=== PATIENT | female | born 1965 | race Caucasian/White ===

== ENCOUNTER 2017-03-30 17:51 | Emergency (ER) | payer OTHER ==
--- NOTE | ~2017-03-30 | CR2 ---
[facility] A Service of [facility] & [facility] RADIOLOGY TEXT RESULTS PATIENT: RAY COREA LOCATION: [facility] : 65 UNIT #: [id number] AGE: [address]: Kiet Klein MD SEX: F ORDER DR: [id number] [facility] [address] [place], [place] [address] [id number] E MR#: [id number] Acc #: [id number] NAME: RAY COREA : 1965 SEX: F STUDY DATE/TIME: 03/30/2017 19:25 UNIT: [facility] ROOM: STUDY DESCRIPTION: CR Abdomen Acute Series Attending Physician: Kiet Klein M.D. Ordering Physician: Kiet Klein M.D. Primary Care Physician: Sheldon Diego M.D. MEDICAL IMAGING REPORT This report is preliminary unless electronic signature is present EXAM Acute abdomen series HISTORY Nausea and vomiting for the past 2 days. TECHNIQUE A single view of the chest was obtained as well as flat and upright views of the abdomen. FINDINGS The lungs are clear. In the abdomen, the bowel gas pattern is normal. Clips are seen from cholecystectomy and tubal ligation. No suspicious masses or calcifications are seen. IMPRESSION Normal bowel gas pattern. Dictated by... Real Whitney M.D. THIS IS AN ELECTRONICALLY VERIFIED REPORT Real Whitney M.D. at 03/30/2017 10:18 PM RLF/pcl TD: 03/30/2017 20:54 JOB #: [id number] MEDICAL IMAGING REPORT Page 1 of 1 COPY
--- NOTE | ~2017-03-30 | CR151 ---
[facility] A Service of [facility] & [facility] RADIOLOGY TEXT RESULTS PATIENT: RAY COREA LOCATION: [facility] : 65 UNIT #: [id number] AGE: [address]: Kiet Klein MD SEX: F ORDER DR: [id number] [facility] [address] [place], [place] [address] [id number] E MR#: [id number] Acc #: [id number] NAME: RAY COREA : 1965 SEX: F STUDY DATE/TIME: 03/30/2017 19:28 UNIT: [facility] ROOM: STUDY DESCRIPTION: CR Hip Min 2 Views Rt Attending Physician: Kiet Klein M.D. Ordering Physician: Kiet Klein M.D. Primary Care Physician: Sheldon Diego M.D. MEDICAL IMAGING REPORT This report is preliminary unless electronic signature is present EXAM Right hip HISTORY Hip and groin pain and swelling for the past 2 days. TECHNIQUE 2 views of the hip were obtained. FINDINGS AP and oblique examination of the hip shows adequate mineralization of the bones and a normal anatomic relationship of the femoral head with the acetabulum. There are no hypertrophic changes, fractures, dislocation, or joint capsular distension. No radiopaque foreign body is present about the soft tissues of the hip. IMPRESSION Normal hip. Dictated by... Real Whitney M.D. THIS IS AN ELECTRONICALLY VERIFIED REPORT Real Whitney M.D. at 03/30/2017 10:18 PM RLF/altagracia TD: 03/30/2017 20:55 JOB #: [id number] MEDICAL IMAGING REPORT Page 1 of 1 COPY
--- NOTE | ~2017-03-30 | US85 ---
[facility] A Service of [facility] & [facility] RADIOLOGY TEXT RESULTS PATIENT: RAY COREA LOCATION: [facility] : 65 UNIT #: [id number] AGE: [address]: Kiet Klein MD SEX: F ORDER DR: [id number] [facility] [address] [place], [place] [address] [id number] MR#: [id number] Acc #: [id number] NAME: RAY COREA : 1965 SEX: F STUDY DATE/TIME: 03/30/2017 20:04 UNIT: [facility] ROOM: STUDY DESCRIPTION: [facility] [employer] Attending Physician: Kiet Klein M.D. Ordering Physician: Kiet Klein M.D. Primary Care Physician: Sheldon Diego M.D. MEDICAL IMAGING REPORT This report is preliminary unless electronic signature is present EXAM Color Doppler ultrasound examination of the right lower extremity. HISTORY Right leg pain and swelling for 4 days. TECHNIQUE Ultrasound evaluation was performed with michel-scale, color flow, and Doppler spectral waveform analysis. FINDINGS The examination is negative. There is no evidence of right lower extremity deep venous thrombus from the groin to the lower calf. Visualized greater saphenous vein is also patent. IMPRESSION Negative examination. No evidence of right lower extremity DVT. Dictated by... Real Whitney M.D. THIS IS AN ELECTRONICALLY VERIFIED REPORT Real Whitney M.D. at 03/30/2017 10:18 PM KALPANA/jen TD: 03/30/2017 21:28 JOB #: [id number] MEDICAL IMAGING REPORT Page 1 of 1 COPY
[~2017-03-30 17:51] MED LIST: DICYCLOMINE HCL20 MG PO; LISINOPRIL; OMEPRAZOLE; ZOFRAN ODT4 MG/UDTAB PO
[2017-03-30 19:26] LABS: BASOPHIL# 0.1 X10e3 (0-0.3); BASOPHIL% 0.7 % (0-2.5); EOSINOPHIL# 0.2 X10e3 (0-0.7); EOSINOPHIL% 2.4 % (0.0-7.0); HEMATOCRIT 43.4 % (35.0-45.0); HEMOGLOBIN 15.1 gm/dL (12.0-16.0); LYMPHOCYTE# 2.6 X10e3 (1.0-3.5); LYMPHOCYTE% 33.4 % (17.0-45.0); MEAN CORPUSCULAR HEMOGLOBIN 30.9 PG (28-34); MEAN CORPUSCULAR HGB CONC 34.7 g/dL (30-36); MEAN PLATELET VOLUME 8.1 FL (6.5-11.5); MONOCYTE# 0.5 X10e3 (0-1.0); MONOCYTE% 6.5 % (3.0-12.0); NEUTROPHIL# 4.5 X10e3 (1.5-7.1); PLATELET COUNT 212 X10e3 (140-420); RED BLOOD COUNT 4.87 X10e (3.90-5.30); WHITE BLOOD COUNT 7.9 X10e3 (4.0-10.5)
[2017-03-30 19:32] LABS: DIFF IND NO
[2017-03-30 19:51] LABS: URINE SOURCE CLEAN CATCH
[2017-03-30 19:55] LABS: BILIRUBIN, DIRECT 0.1 mg/dL (0.0-0.2); BILIRUBIN,INDIRECT 0.3 mg/dL (0.0-0.9); BILIRUBIN,TOTAL 0.4 mg/dL (0.2-2.0); BUN/CREATININE RATIO 12.3; CREATININE SERUM 1.3 mg/dL (0.6-1.4); GLOM FILT RATE Estimated 47.5 mL/min (>60); POTASSIUM 4.4 mmol/L (3.5-5.1); PROTEIN TOTAL SERUM 6.9 g/dL (6.0-8.3)
[2017-03-30 20:03] LABS: URINE APPEARANCE CLEAR; URINE BILIRUBIN NEG (NEG); URINE BLOOD NEG (NEG); URINE COLOR YELLOW; URINE GLUCOSE NEG (NEG); URINE KETONE NEG (NEG); URINE LEUKOCYTE ESTERASE NEG (NEG); URINE NITRATE NEG (NEG); URINE PROTEIN NEG (NEG); URINE SPECIFIC GRAVITY 1.006 (1.003-1.035); URINE UROBILINOGEN 0.2 MG/DL (NEG)
[2017-03-30 20:11] LABS: CULTURE INDICATED? NO
== END 2017-03-30 21:22 | disposition home or self-care (01) ==
LOC: CED 17:51
PROVIDERS: Emergency Medicine
DX: M25.551 Pain in right hip (principal); E87.1 Hypo-osmolality and hyponatremia; I10 Essential (primary) hypertension
CPT/HCPCS: 73502; 74022; 80048; 80076; 81003; 83690; 85025; 93971; 96360; 99284